=== PATIENT | male | born 1945 | race Caucasian/White ===

== ENCOUNTER 2024-01-04 01:45 | Inpatient (IN) | payer OTHER, SELFPAY ==
[2024-01-04] VITALS (10 sets, daily range): BP systolic 118–145; BP diastolic 64–78; PULSE 96–117; RESP 12–21; TEMP 36.5–38.1; O2SAT 92–98; BMI 21.4
--- NOTE | 2024-01-04 07:36 | DI.RAD.S_ITS ---
PROCEDURE: XR HIP W PEL IF DONE MARCELINO MIN 4V INDICATIONS: fx TECHNIQUE: AP pelvis with lateral view(s) of the right hip(s). COMPARISON: None. FINDINGS: Bones: Moderately angulated and impacted right hip fracture, probably transcervical. Soft tissues: There are degenerative changes. IMPRESSION: Right hip fracture, with moderate angulation and impaction Dictated by: John Tejada M.D. on 01/04/2024 at 8:20 Approved by: John Tejada M.D. on 01/04/2024 at 8:21
[2024-01-04] MEDS: LACTATED RINGERS 1,000 ML 100 ML IV ×2 (11:43→15:55)
[2024-01-04 13:01] LABS: Hematocrit 34.7 % (41-53); Mean Corpuscular HGB Conc 34.4 % (30-36); Mean Corpuscular Hemoglobin 30.8 PG (26-34); Mean Corpuscular Volume 89.4 fL (80-100); Platelet Count 154 X10^3/uL (150-400); Red Blood Cell Count 3.88 X10^6/uL (4.5-5.9); Red Cell Distribution Width 13.9 % (11.6-14.8); White Blood Cell Count 8.6 X10^3/uL (4.5-11.0)
--- NOTE | 2024-01-04 14:10 | DIET.CONS ---
Dietary Consultation Note Admission Date: 01/04/2024 01:45 Assessment: 78 y M admitted for hip fracture. Nutrition screened for low MNA and Juan M score. Pt w/ history of dementia, is proceeding with right hip hemiarthroplasty, currently NPO for surgery. No weight history. Will monitor po intakes when diet is advanced and f/u for full assessment. Ht: 177.8 cm Wt: 68 kg BMI: 21.4 UBW: - Last BM: () MNA: 9 Juan M Score: 15 Diet: 01/04/24 01:54 NPO Diet Diet Modifications: NPO Type: NPO NOW for Procedure Labs: RBC 3.88 X10^6/uL (4.5-5.9) L 01/04/24 12:55 Hgb 12.0 g/dL (13.5-17.5) L 01/04/24 12:55 Hct 34.7 % (41-53) L 01/04/24 12:55 Electronically Signed by: Sydnie Quintana 01/04/24 14:10 Clinical Dietitian [address] [address]
--- NOTE | 2024-01-04 14:12 | PM.HP.1 ---
History of Present Illness History of Present Illness Date Patient Seen: 01/04/24 Time Patient Seen: 14:12 Chief complaint: rt hip fracture DIRECT ADMIT Narrative: 78-year-old male who sustained a ground level fall resulting in a right femoral neck fracture. This happened last night and he was initially seen at [facility]. Transferred to [facility] because they did not have orthopedic care. Currently denies any distal numbness or tingling. Does have dementia. Discussed his case with his designated power of commercial attorney. FOR[facility]LY [facility] Social History Smoking Status: Current every day smoker alcohol intake: former Meds Home Medications and Allergies Home Medications Medication Instructions Recorded Confirmed Type atorvastatin 40 mg tablet 40 mg PO DAILY 01/04/24 History citalopram 20 mg tablet 20 mg PO DAILY 01/04/24 01/04/24 History Allergies Allergy/AdvReac Type Severity Reaction Status Date / Time demeclocycline Allergy Mild Difficulty Verified 01/04/24 05:21 Breathing Tetracyclines Allergy Unknown Verified 01/04/24 05:21 Review of Systems Review of Systems ROS: Yes All systems reviewed with the patient and are negative except as otherwise documented Exam Vital Signs (past 8 hours): - 01/04/24 08:00 01/04/24 12:00 01/04/24 13:34 Temperature 100.2 F H 100.6 F H 100.1 F H Pulse Rate 107 H 102 H 100 H Respiratory Rate 16 18 18 Blood Pressure 118/68 118/66 136/64 Pulse Oximetry 93 92 98 Oxygen Delivery Method Room Air Oxygen Flow Rate 1 1 2 Oxygen Delivery Method Room Air Oxygen Flow Rate 2 Narrative Exam Narrative: HEENT: Head atraumatic eyes anicteric moist mucous membranes Cardiovascular: Palpable peripheral pulses extremities are warm and well perfused Respiratory: Breathing comfortably on room air Psychiatric: Appropriate mood and affect Neuro: No acute deficits Musculoskeletal: Right lower extremity held flexed and slightly externally rotated Postoperatively: 6 weeks of nonweightbearing followed by increased weight-bearing over the next few weeks. For this patient specifically, they will be nonweightbearing for 4 weeks. Transitioned to a boot at the 2 week eligio in clinic when sutures are removed. Sensation intact to light touch in sural, saphenous, superficial peroneal, deep peroneal and tibial nerve distributions. Objective Labs 01/04/24 12:55 Labs: Laboratory Results - last 24 hr 01/04/24 12:55 WBC 8.6 RBC 3.88 L Hgb 12.0 L Hct 34.7 L MCV 89.4 MCH 30.8 MCHC 34.4 RDW 13.9 Plt Count 154 Assessment & Plan Assessment & Plan narrative: Assessment: Right basicervical femoral neck fracture, displaced Plan: Plan for right hip hemiarthroplasty with cement. Discussed this case with his designated power of commercial attorney. Risks and benefits of surgery were discussed again including the risk of infection, damage to internal structures, bleeding, nerve injury, instability, need for revision surgery, blood clots, anesthesia and . No guarantees were made regarding outcomes. Patients DPOA expressed understanding and accepted these risks and wished to go forward with surgery and consent was signed. Time-Based Coding :: [TOTAL MINUTES] spent with patient and on the chart (including review of chart, obtaining history, exam, reviewing outside data, placing orders, documenting exam and treatment plan, and counseling patient) on [DATE].
[2024-01-04] MEDS: CEFAZOLIN 2 GM/100 ML PREMIX 100 ML IV (14:34)
[2024-01-04] MEDS: TRANEXAMIC ACID 1,000 MG VIAL 2000 MG INJ ×2 (14:56→16:03)
--- NOTE | 2024-01-04 15:05 | SUR.OPER ---
Lateral on padded OR bed. Gel axillary roll. Arms secured on padded armboard with pillow supporting top arm. Padded hip positioner braces x4 - anterior and posterior chest and pelvis. Additional gel pad used anterior pelvis. Gel pad under bottom leg from knee to foot and secured with tape over sheet.
[2024-01-04] MEDS: BUPIVACAINE 0.25% (PF) 60 ML, EPINEPHrine 0.3 MG INJ (15:11)
[2024-01-04] MEDS: BUPIVACAINE LIPOSOME 266 MG/20 ML VIAL INJ (15:11)
[2024-01-04] MEDS: EPINEPHrine 1 MG/ML TOP (15:13)
--- NOTE | 2024-01-04 16:00 | PC.NURSE ---
Addendum entered by Nissa Meng R.N. 01/04/24 18:28: Pt returnss from PACU Awake /quite. Family here Dsg to right hip CDI. IVF infusing as per orders w/o incidence. Denies discomfort, resting quietly at this time. Call light w/in reach, b ed alarm on for pt safety. Continue w/plan of care. Original Note: Pt continues i OR at this time. Will assess upon return
--- NOTE | 2024-01-04 16:20 | P.OP_ITS ---
Operative Date/Time/Diagnoses Date of procedure: 01/04/24 Time of procedure: 16:21 Pre-op diagnosis: Right hip femoral neck fracture Post-op diagnosis: same Procedure & Clinicians Procedure: Right hip hemiarthroplasty Same procedure as scheduled: Yes Indications: Indication: This is a 78 old male with a left femoral neck fracture. We discu ssed that in order to decrease the risk of avascular necrosis, fracture nonunion fracture malunion and to increase the ability to weightbear early, and increase overall health outcomes, we recommend hip hemiarthroplasty. The risks and benefits of surgery were discussed in detail including the risk for infection, damage to internal structures, bleeding, hardware failure, femur fracture, need for future surgery, dislocation, and risks of anesthesia. They accepted all the risks and expressed understanding and wished to go forward with surgery. Surgeon: Jasvir Preciado Pet Nutrition Specialist: Yecenia Rivera Operative Notes Findings: Right basicervical femoral neck fracture as seen on imaging and under direct visualization. Closure Type: primary Specimen(s): none sent Prosthetic devices, grafts, tissues, transplants, or devices: Implants [employer] Synergy cemented stem size 11 Distal post centralizer Cement restrictor High offset taper sleeve Unipolar head size 54 Estimated Blood Loss (mL): 100 Blood products transfused: none Procedure in detail: Description: Patient was identified in the preoperative holding area. The correct right hip was marked with my initials. Risks were again discussed. The patient was then brought to the operating room. A surgical pause was done confirming the correct site of surgery. The patient was given perioperative IV antibiotics followed by induction of general anesthesia. Patient was placed in the lateral decubitus position with hip athletics director positioners. An axillary roll was placed. The right hip and lower extremity were then prepped and draped in a standard sterile fashion. Posterolateral skin incision was made centered over the greater trochanter. Dissection was carried down to the fascia jaelyn and a Han was used to define the plane of tissue. The fascia was then incised in line with the skin incision over the greater trochanter. A Charnley retractor was placed. The trochanter bursa was then resected. The leg was internally rotated and the capsule and short external rotators were put on tension. They were then released in line with the piriformis tendon as a single sleeve in an L-shaped fashion and this was tagged with a #5 Ethibond suture for later repair. The upper part of the quadratus femoris insertion on the femur was released. The hip was then dislocated. With the thigh parallel to the ground and the leg perpendicular to the ground at 90?, a femoral neck cut was done and then the femoral head was removed from the acetabulum. A Lr retractor was placed under the neck, and a narrow Cobra was placed into the lesser trochanter. The Uevoc cutter and canal Finder were then used followed by the lateralizer. Broaching was commenced. Trialing was then done and the hip was felt to be stable. Once satisfactory sizing was confirmed a centralized plug was inserted and the canal was lavaged and dried. Cement was inserted and pressurized. The final implant was then inserted with just a few degrees of additional anteversion from the shawnee version. Retrialing was done and the final bipolar head/neck construct was inserted. The hip was again taken through range of motion. Implant was stable at 90? of hip flexion all the way to 60? of internal rotation. Leg lengths were equal based on tibial tubercle palpation. The wounds were irrigated. Capsule was repaired through 2 drill holes in the greater trochanter. Fascia was closed with #2 Quill and then the subcutaneous tissue was closed with Vicryl followed by skin sol and sterile dressings. Patient tolerated the procedure well without complications. Assisting participation: This operation could not have been safely performed (without compromising the technical results or length of the procedure) without the assistance of a skilled surgical garment assembler. The surgical garment assembler was medically necessary for proper positioning, retraction and handlingof instruments, proper exposure, and manipulation of tissue. Complications: none Post-operative Condition: stable Disposition: PACU Plan for aftercare: Postop instructions: Patient may weightbear as tolerated on postoperative day 1. Hip precautions to remain in place. No flexion adduction and internal rotation. Patient may shower over the dressing. If water gets underneath the dressing, please remove the dressing completely and ensure that the incision is completely dry. Otherwise, the dressing will come off on at the 1st postoperative visit in 2 weeks. I recommend aspirin, 81 mg b.i.d. for 4 weeks unless they are already on an anticoagulant or aspirin is not tolerated, if this is the case then Lovenox 40 mg subcutaneous for 4 weeks can be used for DVT prophylaxis.
--- NOTE | 2024-01-04 16:27 | CM.DPNOTE ---
DCP NOTE CERAMIC DESIGN ENGINEER reviewed EMR. per chart, pt direct admit from [facility] for GLF resulting in hip fracture. No H&P/notes in the chart for the entire day. Per RN, pt only oriented to self/has dementia at baseline. No documentation in chart. Per RN, OR scheduled for today. DALTON Bridges provided CM team with medical records from [facility]. Behind FS CERAMIC DESIGN ENGINEER unable to complete comprehensive DCP assessment today. CM team will follow closely tomorrow RAHUL Martínez
[2024-01-04 17:16] LABS: COVID19 -Nasal RAPID Negative (Negative)
[2024-01-04] MEDS: INSULIN LISPRO 100 UNIT/ML 3ML VIAL SUBCUT (20:30)
[2024-01-04] MEDS: ASPIRIN EC 81 MG TABLET PO (20:34)
[2024-01-05 01:00] VITALS: BP 124/76; PULSE 86; RESP 19; TEMP 36.6; O2SAT 94
[2024-01-05] MEDS: OXYCODONE 5 MG/5 ML ORAL SOLUTION PO ×2 (01:22→14:04)
[2024-01-05] MEDS: LACTATED RINGERS 1,000 ML 100 ML IV (01:55)
[2024-01-05 04:50] VITALS: O2SAT 97
--- NOTE | 2024-01-05 06:14 | PM.PNPO.1 ---
Subjective Subjective Date Patient Seen: 01/05/24 Time Patient Seen: 06:15 Interval history: Martin suffered a GLF on the evening of 01/03/2024, resulting in a RIGHT femoral neck fracture. He was taken to surgery w/ Dr Preciado yesterday for a right hip hemiarthorplasty. There is not much history available to me on my visit today. He is reponsive, providing one-word answers that correlate to my questions. But he is wearing mittens over his hands and his hands are partially restrained. From what I can ascertain, he was living at home with his . Exam Vital Signs (past 8 hours): - 01/04/24 22:30 01/05/24 01:00 01/05/24 04:50 Temperature 97.8 F Pulse Rate 86 Respiratory Rate 19 Blood Pressure 124/76 Pulse Oximetry 95 94 97 Oxygen Delivery Method Nasal Cannula Nasal Cannula Oxygen Flow Rate 2 2 1 Fraction of Inspired Oxygen 28 Fraction of Inspired Oxygen 28 SaO2/FiO2 Ratio 339 Oxygen Delivery Method Nasal Cannula Oxygen Flow Rate 1 Narrative Exam Narrative: He will not move his leg for me, but I am able to see him move at the ankle. His calf is soft and compressible. Aquacel dressing from what I can see is CDI. Objective Labs 01/04/24 12:55 Labs: Laboratory Results - last 24 hr 01/04/24 01/04/24 12:55 16:30 WBC 8.6 RBC 3.88 L Hgb 12.0 L Hct 34.7 L MCV 89.4 MCH 30.8 MCHC 34.4 RDW 13.9 Plt Count 154 SARS-CoV-2 (PCR) Negative PFSH Social History Smoking Status: Current every day smoker alcohol intake: former Assessment & Plan Post-op Assessment and plan (1) Status post hip hemiarthroplasty: Assessment and Plan narrative: 1) PT - WBAT to RLE. 2) VTE prophylaxis - ASA 81mg BID 3) Disposition pending PT assessment; PT, OT, and CM consults have not yet been ordered. He will very likely need SNF prior to discharge home. Postoperative Procedures: Procedures Operation Date: 01/04/24 14:45 Actual Procedure Side Surgeon p Hip Hemiarthroplasty Right Jasvir Preciado MD Postoperative day: 1
--- NOTE | 2024-01-05 06:19 | PC.NURSE ---
Patient pulling out his IV access, pizarro catheter, oxygen tubing, pulse oximeter & his gown. Applied bilateral mittens not attach to bed. SPO2 in 2 liters 98% & @ 1 liter 97%, turned 02 down to 0.5 liter & SPO2 92-93%< Will continue plan of care & monitor.
[2024-01-05 07:37] VITALS: O2SAT 97
[2024-01-05 08:00] VITALS: BP 120/62; PULSE 81; RESP 17; TEMP 36.8; O2SAT 95
[2024-01-05] MEDS: ASPIRIN EC 81 MG TABLET PO ×2 (08:09→20:46)
--- NOTE | 2024-01-05 13:15 | PT.IIE ---
Current Diagnoses Fracture of unspecified part of neck of right femur, initial encounter for closed fracture (01/04/24) Presence of unspecified artificial hip joint (01/04/24) Surgery Performed Operation Date: 01/04/24 14:45 Actual Procedures p Hip Hemiarthroplasty(Right) - Jasvir Preciado MD Physical Therapy Inpatient Evaluation/Re-Eval M1 PT/OT-IP Prior Functional Status Start: 01/05/24 16:24 Freq: NEEDED Status: Active Protocol: Document 01/05/24 13:15 AB (Rec: 01/05/24 16:44 AB [id number]) Medical Review Prior Functional Status Medical History Reviewed Yes Communication does not verbalize much and inconsistent with answering questions; pt with dx dementia Mobility and Gait unable to obtain PLOF form pt. edwin stated that pt mostly in bed but per memory care staff: pt able to walk with COMMUNICATIONS OPERATOR to the dining room but daughter does not know how much assistance. Social History Household Members caregiver Living Arrangements Other Number of Stairs To Enter/Railing? pt lives at [facility] Additional Social History Comment daughter stated that memory care facility cannot accept pt back at this time. M2 PT-IP Current Condition Start: 01/05/24 16:24 Freq: NEEDED Status: Active Protocol: Document 01/05/24 13:15 AB (Rec: 01/05/24 16:44 AB [id number]) Physical Therapy Current Condition Current Condition Evaluation Date 01/05/24 Treatment Diagnosis s/p R hip hemiarthroplasty; difficulty in walking Onset Date 01/04/24 M3 PT-IP Subjective Start: 01/05/24 16:24 Freq: NEEDED Status: Active Protocol: Document 01/05/24 13:15 AB (Rec: 01/05/24 16:44 AB [id number]) Subjective Physical Therapy Visit Type Type Initial Evaluation Visit Start Time 13:15 Visit Stop Time 14:10 Number of PICTURE ENLARGER Visits 0 Therapy Pain Assessment Pain When Pain Assessed During Mobility Pain Present Pain Present Pain Reported Location Right Hip Scale Used pain scale not stated that stated that hip hurts Pain Management Techniques Distraction,Modification of Treatment,Re-positioning, Timing of Activity with Medications M4 PT-IP Mobility and Gait Start: 01/05/24 16:24 Freq: NEEDED Status: Active Protocol: Document 01/05/24 13:15 AB (Rec: 01/05/24 16:44 AB [id number]) PT-Bed Mobility Assessment Supine to Sit Supine to Sit Maximum Assistance,1 Person Assistance,2 Person Assistance ,Head of Bed Elevated,Bedrails PT-Transfer Assessment Sit to and From Stand Sit to and from Stand Maximum Assistance,2 Person Assistance,Use of Upper Extremities Equipment Transfer Assistive Device Gait Belt,Front Wheeled Walker Orthotic/Prosthetic Devices or Brace: No Transfers Transfer Destination Chair Transfer Technique Stand Pivot Transfer Ability Level of Assist Total Assistance,2 Person Assistance,Use of Upper Extremities Comments Mobility Comments pt supine in bed. attempted to obtain PLOF and home set up but pt unable to provide. pt with dx dementia and is not consistent with answering question. pt needing one step cues with all tasks. completed supine to sit x 3 attemps max A x 1-2 and max cues with HOB elevated and use of bed rail. pt with increase guarding during movement and can be resistive. pt able to sit on EOB max A and max cues. nurse in room to assist. completed sit to stand x 2 reps. increase posterior trunk lean and body guarding. pt sat back down redirected pt to task completed sit to stand again max A x 2 and max cues and stand pivot transfer to chair max A x 2 to total A x 2 using FWW. pt inconsistent with following directions. positioned pt on the chair. call light and table placed within reach. informed nurse regarding chair alarm. family came in towards end of PT session and provided some info regarding pt. informed family regarding PT in hospital but limited due to pt's inability to follow directions, agitation/ resistance that will affect carryover of function but PT to continue efforts at this time. family understood. Gait Assessment Comments Gait Comments unable PT-Balance Assessment Sitting Balance and Reactions Static Sitting Balance Ability Fair Dynamic Sitting Balance Ability Poor Standing Balance and Reactions Static Standing Balance Ability Poor Dynamic Standing Balance Ability Poor Device Used FWW M5 PT-IP Objective Assessments Start: 01/05/24 16:24 Freq: NEEDED Status: Active Protocol: Document 01/05/24 13:15 AB (Rec: 01/05/24 16:44 AB [id number]) Orientation Orientation/Cognition Level of Alertness Confusional State Orientation Name Safety Awareness Decreased Safety Awareness Memory Description Short Term Impaired,Contact Lens Blocker And Cutter Impaired Strength Lower Extremity Strength Assessment Right Impaired Hip 3-/5 Knee 3+/5 Muscle Tone Muscle Tone WNL Yes M6 PT-IP Treatment Start: 01/05/24 16:24 Freq: NEEDED Status: Active Protocol: Document 01/05/24 13:15 AB (Rec: 01/05/24 16:44 AB [id number]) Physical Therapy Treatment Education Education Provided Precautions,Weight Bearing Status,Post-Op Packet,Safety M7 PT-IP Assessment and Plan Start: 01/05/24 16:24 Freq: NEEDED Status: Active Protocol: Document 01/05/24 13:15 AB (Rec: 01/05/24 16:44 AB [id number]) PT Summary Assessment and Plan Potential Rehabilitation Potential Fair Status of Condition at Evaluation Evolving Summary Impairments Pain,ROM,Strength,Balance, Coordination,Sensation,Tone, Cognition,Bed Mobility, Transfers,Gait,Activity Tolerance Assessment Summary pt is a 78 y/o M s/p fall and sustain a R femoral neck fx. pt underwent R hip hemiarthroplasty POD 1 and has R hip posterior precautions and is WBAT. pt requiring max A x 2 to total A x 2 with all mobilities at this time and unable to ambulate. pt with dx dementia contributing to current condition. pt inconsistent with following directions and unable to follow his hip precautions. will continue to make efforts to improve pt's mobility. pt will need SNF rehab to improve overall strength and function . will continue to assess progress. Goals Bed Mobility Goal Minimal Assistance Transfer Goal Minimal Assistance,Front Wheeled Walker Gait Goal Minimal Assistance,Front Wheel Walker Gait Distance 20 Other Goals improve bed mobility, transfers, ambulation using FWW ~ 50 ft CGA Days to Meet Goals 10 Frequency of Treatment Other frequency 1-2x/day Treatment Plan Physical Therapy Treatment Plan Bed Mobility Training,Transfer Training,Gait Training, Therapeutic Exercise,Balance Retraining,Post Op Education, Discharge Planning,Hot or Cold Pack,Neuromuscular Re-ed, Coordination Retraining,Manual Therapy Precautions Posterior Hip Precautions No Hip Flexion > 90 degrees,No Hip Internal Rotation,No Hip Adduction Weight Bearing Status Weight Bearing Status Weight Bear as Tolerated Allowed Weight Bearing Amount (enter % RLe WBAT or #) (%) Recommendations To Nursing Amount of Assist Needed Mechanical Lift Discharge Recommendations PT Discharge Recommendations SNF Rehab Transportation Needs at Discharge Wheelchair/Cabulance,Stretcher /Ambulance
--- NOTE | 2024-01-05 15:02 | CM.DANOTE ---
DPA Assessment Note: Patient is a 78 y/o m admitted s/o fall, transferred from [facility], resides at [facility]. Chart reviewed spoke with patient daughter, spouse, son, and grand dtr at the bedside. Patient dtr is medical POA, copied for chart, and states they would like [facility] in [place] for SNF. Passr needs to be done. RAHUL Guzman Discharge Planning/Care Management CM Discharge Assessment Start: 01/05/24 14:59 Freq: Status: Active Protocol: Document 01/05/24 14:59 KG (Rec: 01/05/24 15:01 KG [id number]) Discharge Planning Assessment Assigned Wallpaper Remover Steam Meka Esparza DPOA/Assigned Designee Name Martin Vigil Advance Directives? No History Provided By Family Member,Significant Other Expected Length of Stay 2 Has Patient been admitted in last 30 No days? Prior Living Arrangements Assisted Living Comment [facility], Memory Care Type of transporation used prior to Relies on Others admit Independent with ADL's No Is patient alert and oriented? No Needs Assistance With Bathing,Eating,Grooming,Meal Prep,Toileting,Managing Medications Caregiver for Another No Patient/Family Preference Prison Facility Barriers to Discharge No Discharge Plan Prison Facility Referrals Initiated Prison If patient plan is SNF: Has PASSR been No completed?
[2024-01-05 16:00] VITALS: BP 117/60; PULSE 96; RESP 12; TEMP 36.9; O2SAT 93
[2024-01-05] MEDS: INSULIN LISPRO 100 UNIT/ML 3ML VIAL SUBCUT (16:45)
--- NOTE | 2024-01-05 17:55 | PC.NURSE ---
Pt presents more alert today, however still some dementia noted Takng meals well SL intact, patent. Sat in chair for approximately 2 hrs w/o incidence. Todd used for transfer. Call light w/in reach, Bed alarm on for pt safety. Continue w/plan of care.
[2024-01-05 20:35] VITALS: BP 163/86; PULSE 104; RESP 16; TEMP 37.4; O2SAT 96
[2024-01-05] MEDS: ACETAMINOPHEN 325 MG TABLET 650 MG PO (20:45)
[2024-01-06] VITALS (9 sets, daily range): BP systolic 101–137; BP diastolic 54–70; PULSE 83–103; RESP 15–18; TEMP 36.8–38.3; O2SAT 92–96
[2024-01-06] MEDS: ACETAMINOPHEN 325 MG TABLET 650 MG PO ×2 (04:39→13:42)
[2024-01-06] MEDS: IBUPROFEN 600 MG TABLET PO ×2 (08:18→13:42)
[2024-01-06] MEDS: ASPIRIN 81 MG CHEW TAB PO ×2 (08:24→20:17)
--- NOTE | 2024-01-06 08:43 | PC.NURSE ---
Patient is Alert but only oriented x1. He is familiar with his name. He will answer questions sometimes, and seems agitated at times. He has an aquacel dressing to his r.hip with some drainage present. He was repositioned this morning and has pillows under his legs, one wedged in between his legs, and another pillow on his r.side as he likes to shift over on that side. He does moan out in pain when being repositioned. Patient given some ibuprofen and chewable aspirin this morning in pudding. His medication needs to be crushed or he will just chew it. Blood Sugar this morning 115. No insulin given. CMS wnl and ppx2.
--- NOTE | 2024-01-06 13:03 | CM.DPC ---
DCP Cont. Reviewed EMR and team rounds for status updates. [facility] referral sent on 01/05, did not receive return call today on status of acceptance. Will need to call and clarify on Sunday, will need auth. PASSAR not yet done.
--- NOTE | 2024-01-06 13:07 | PT-IP ANOTE ---
PT checks in on pt who presents with confusion and decreased eye contact. He has trouble communicating with PT. PT pushing napkin with spoon and then continuing to eat jell-o. Will con't PT efforts next date as pt is better able to participate with therapies. Recommend OOB to chair with total lift as appropriate.
--- NOTE | 2024-01-06 14:35 | DI.CT.S_ITS ---
PROCEDURE: CT HEAD/BRAIN WO CON INDICATIONS: r/o SDH TECHNIQUE: Noncontrast 4.5 mm thick angled axial sections acquired from the foramen magnum to the vertex, with coronal and sagittal reformats. For radiation dose reduction, the following was used: automated exposure control, adjustment of mA and/or kV according to patient size. COMPARISON: None. FINDINGS: Image quality: Diagnostic. CSF spaces: Basal cisterns are patent. No extra-axial fluid collections. Ventricles are normal in size and shape. Brain: No midline shift. No intracranial masses or hemorrhage. Calvillo-white matter interface is normal. Moderate cerebral and cerebellar volume loss with multifocal white matter chronic ischemic change noted. Atherosclerotic calcification noted associated with cavernous segments of both internal carotid arteries. Old right thalamic lacunar infarct Skull and face: Calvarium and visualized facial bones are intact, without suspicious lesions. Bilateral intraocular lens replacements noted. Sinuses: Visualized sinuses and mastoids are clear. IMPRESSION: Atrophy and chronic ischemic change without acute hemorrhage or mass effect. Old right thalamic lacunar infarct. Approved by: Adryan Fry M.D. on 01/06/2024 at 15:27
--- NOTE | 2024-01-06 14:40 | P.PN_ITS ---
Subjective Subjective Date Patient Seen: 01/06/24 Time Patient Seen: 14:40 Interval history: Martin suffered a GLF on the evening of 01/03/2024, resulting in a RIGHT femoral neck fracture. He was taken to surgery w/ Dr Preciado on 01/05/2024 for a right hip hemiarthorplasty. Thanks to the care management team as well as the opportunity to meet the pts sister, niece, and granddaughter today, I have a little more insight into this pts baseline state of health. He resides at [facility], and per the family, the staff have not been forthcoming about how this fall occurred or what happened afterwards. They tell me it was reported that he hit his head, and they don't think any imaging was done at [facility]. They are requesting that I order a CT of the head as they feel his responsiveness has decreased since his fall. They tell me he is typically a bit more interactive and can answer their questions. When I try to engage with him today, he avoids eye contact and doesn't answer me at all. Family tells me the staff has been withholding narcotic pain medication because they think it is contributing to his confusion. Sister says she can tell he is angry and in pain. Exam Vital Signs (past 8 hours): - 01/06/24 08:00 01/06/24 08:09 Temperature 98.3 F Pulse Rate 91 H Respiratory Rate 15 Blood Pressure 101/54 L Pulse Oximetry 95 92 Oxygen Delivery Method Nasal Cannula Oxygen Flow Rate 2.5 3 Fraction of Inspired Oxygen 32 Fraction of Inspired Oxygen 32 SaO2/FiO2 Ratio 287 Oxygen Delivery Method Nasal Cannula Oxygen Flow Rate 3 Narrative Exam Narrative: Dressing to right hip seems to have some bloody drainage, but unable to assess fully d/t pts lack of cooperation. He will not move his RLE for me. His calf is soft and compressible. Objective Labs 01/04/24 12:55 [facility] Social History household members: caregiver Smoking Status: Current every day smoker alcohol intake: former Assessment & Plan Post-op Assessment and plan (1) Status post hip hemiarthroplasty: Assessment and Plan narrative: 1) Patient was directly admitted to Dr Preciado; should probably have been admitted to the hospitalist service given his history. Per family's request, I'll order a CT scan of the head and have results called to Dr Preciado, at which point he can decided whether he feels the hospitalist service should be consulted on this patient. 2) I have d/c'd the oxycodone solution and started tramadol, which should help with pain and typically causes less cognitive dissonance than oxycodone. 3) Per notes, referral has been sent to [facility] in [place] per family's request. 4) Will continue ASA 81mg BID. At this point, I don't see evidence of acute hemorrhagic stroke or SDH, and I think the risk of VTE outweighs the benefit of holding ASA until the CT scan is complete. Postoperative Procedures: Procedures Operation Date: 01/04/24 14:45 Actual Procedure Side Surgeon p Hip Hemiarthroplasty Right Jasvir Preciado MD Postoperative day: 2
[2024-01-06] MEDS: TRAMADOL 50 MG TABLET 100 MG PO (15:09)
[2024-01-07 04:00] VITALS: BP 121/66; PULSE 86; RESP 16; TEMP 37.2; O2SAT 93
--- NOTE | 2024-01-07 06:25 | PM.PNPO.1 ---
Subjective Subjective Date Patient Seen: 01/07/24 Time Patient Seen: 06:50 Interval history: Per family's request, CT head was performed yesterday to r/o hemorrhage/infarct d/t mental status changes. CT showed no acute processes. Despite my waking him from a sound sleep this morning, Mr Vigil is much brighter than I've seen him since this admission. He answers questions appropriately and with more than one word. I told him I had the opportunity to meet his family and that they love him very much. I love them, too, he replied. We discussed that he may go to rehab later today. He says his pain isn't too bad; I switched him from oxycodone to tramadol yesterday in the hopes it would be less sedating, and it looks like he only received one 100mg dose. Exam Vital Signs (past 8 hours): - 01/07/24 04:00 Temperature 98.9 F Pulse Rate 86 Respiratory Rate 16 Blood Pressure 121/66 Pulse Oximetry 93 Oxygen Flow Rate 2 Fraction of Inspired Oxygen 28 SaO2/FiO2 Ratio 328 Oxygen Delivery Method Nasal Cannula Oxygen Flow Rate 2 Narrative Exam Narrative: 3/5 hip flexors, quadriceps, hamstrings; 5/5 PF, DF, EHL on right. Sensation to light touch intact throughout RLE, calf soft and compressible. Pt unable to roll so that I can fully see dressing, but there is some bloody drainage from the Aquacel. Objective Labs 01/04/24 12:55 PFSH Social History household members: caregiver Smoking Status: Current every day smoker alcohol intake: former Assessment & Plan Post-op Assessment and plan (1) Status post hip hemiarthroplasty: Assessment and Plan narrative: 1) Per CM notes, referral has been sent to [facility] in [place] per family's request. I will write d/c summary, print rxs and med list in the event pt is able to d/c today. There is no PASSR available for signature in the chart. 2) WBAT to RLE. Dressing change prior to discharge. F/u in office in 2 weeks for wound check. 3) ASA 81mg BID for VTE prophylaxis. Postoperative Procedures: Procedures Operation Date: 01/04/24 14:45 Actual Procedure Side Surgeon p Hip Hemiarthroplasty Right Jasvir Preciado MD Postoperative day: 3
--- NOTE | 2024-01-07 06:56 | P.DS_ITS ---
History of Present Illness History of Present Illness Date Patient Seen: 01/07/24 Time Patient Seen: 06:56 Chief complaint: rt hip fracture DIRECT ADMIT Narrative: Operative Date/Time/Diagnoses Date of procedure: 01/04/24 Time of procedure: 16:21 Pre-op diagnosis: Right hip femoral neck fracture Post-op diagnosis: same Procedure & Clinicians Procedure: Right hip hemiarthroplasty Same procedure as scheduled: Yes Indications: Indication: This is a 78 old male with a left femoral neck fracture. We discussed that in order to decrease the risk of avascular necrosis, fracture nonunion fracture malunion and to increase the ability to weightbear early, and increase overall health outcomes, we recommend hip hemiarthroplasty. The risks and benefits of surgery were discussed in detail including the risk for infection, damage to internal structures, bleeding, hardware failure, femur fracture, need for future surgery, dislocation, and risks of anesthesia. They accepted all the risks and expressed understanding and wished to go forward with surgery. Surgeon: Jasvir Preciado Electrical Experimental Mechanic: Yecenia Rivera Operative Notes Findings: Right basicervical femoral neck fracture as seen on imaging and under direct visualization. Closure Type: primary Specimen(s): none sent Prosthetic devices, grafts, tissues, transplants, or devices: Implants [employer] Synergy cemented stem size 11 Distal post centralizer Cement restrictor High offset taper sleeve Unipolar head size 54 Estimated Blood Loss (mL): 100 Blood products transfused: none Discharge Providers Provider Date of admission: 01/04/24 01:45 Discharge Date: 01/07/24 Primary care physician: Beatriz Osullivan MD Consults: 01/05/24 10:59 Consult to Discharge Planning Routine Comment: Consult to Physical Therapy Evaluate & Treat Comment: WBAT to RLE Physician Instructions: Evaluate and Treat 01/05/24 11:00 Consult to Occupational Therapy Evaluate & Treat Comment: Physician Instructions: Evaluate and treat Discharge provider: Reanna Echols PA-C Summary Hospital Course Discharge Diagnosis: Right femoral neck fracture, s/p right hip hemiarthroplasty Hospital Course: Mr Vigil's hospital course was remarkable for some post-op confusion, which, in talking to his family, was more pronounced than usual. He resides at a memory care facility, but despite this, he is typically conversant. Because of family's concerns, a CT of the head was ordered and opioid medications were changed on POD# 2. CT was negative for any acute changes and demonstrated an old lacunar infarct. On the morning of POD# 3, he was much brighter than he had been since surgery. PT recommended SNF prior to return to [facility] care, and family requested [facility] in [place]. Exam Vital Signs (past 8 hours): - 01/07/24 04:00 Temperature 98.9 F Pulse Rate 86 Respiratory Rate 16 Blood Pressure 121/66 Pulse Oximetry 93 Oxygen Flow Rate 2 Fraction of Inspired Oxygen 28 SaO2/FiO2 Ratio 328 Oxygen Delivery Method Nasal Cannula Oxygen Flow Rate 2 Narrative Exam Narrative: Please see today's progress note. Objective Labs 01/04/24 12:55 PFSH Social History household members: caregiver Smoking Status: Current every day smoker alcohol intake: former Discharge Assessment & Plan Assessment and Plan Assessment: Right femoral neck fracture, s/p right hip hemiarthroplasty Plan of Treatment: Discharge to SNF when accepted. Dressing change, Kat removal prior to discharge. F/u w/ ortho in 2 weeks for wound check. WBAT to RLE, walker at all times when upright/ambulatory. ASA 81 mg BID x 6 weeks for VTE prophylaxis. Discharge Plan Discharge Plan Patient Disposition: SNF Transfer to: [facility] Discharge orders & Medications Prescriptions: New acetaminophen 325 mg Tablet 650 mg PO Q6H PRN (Reason: Fever/Mild Pain (1-3)) Qty: 120 0RF aspirin 81 mg Tablet,Chewable 81 mg PO BID Qty: 90 0RF ibuprofen 600 mg Tablet 600 mg PO Q6HR PRN (Reason: Fever/Mild Pain (1-3)) Qty: 120 0RF nicotine 21 mg/24 hr Patch 24 Hour 21 mg topical DAILY Qty: 28 0RF tramadol 50 mg Tablet 100 mg PO Q4-6H PRN (Reason: Pain, Moderate (4-6)) Qty: 60 0RF ondansetron 4 mg tablet,disintegrating 4 mg PO Q8H PRN (Reason: nausea and vomiting) Qty: 30 0RF polyethylene glycol 3350 17 gram/dose powder 17 g PO DAILY PRN (Reason: constipation) Qty: 850 0RF Continued atorvastatin 40 mg tablet 40 mg PO DAILY citalopram 20 mg tablet 20 mg PO DAILY Follow up/Referrals: Jasvir Preciado MD [Physician] - 2 Weeks (Follow up w/ PA or Dr Preciado in ortho clinic in 2 weeks postop for wound check and xrays. F/u w/ Dr Preciado in 6 weeks.) Beatriz Osullivan MD [Primary Care Provider] - Diet/Activity/Treatments Diet: Diet as Tolerated Activity: Weightbearing as tolerated to right leg. Posterior hip precautions x 6 weeks. Cold/Heat Therapy: Ice to hip as needed for pain. Skin/Wound/Dressing Care Report to your healthcare provider any signs of infection, such as:: chills, fever, night sweats, unusual drainage and unusual redness Dressing: May shower. Leave dressing in place until follow up in office. If dressing becomes saturated inside, remove and replace with clean, dry gauze. No bathing or otherwise soaking incision. Do not apply any creams, lotions, or ointments to incision. [facility] Reason for rehabilitation: Post-operative therapy Rehab type: Physical therapy and Occupational therapy Visit Report/Discharge Packet Instructions: DI for Hip Replacement, DI for Prescription Opioid Use Stand Alone Forms: Patient Portal/API, Surgery Discharge Discharge Data Primary Care Provider: Beatriz Osullivan
[2024-01-07 08:00] VITALS: BP 125/69; PULSE 86; RESP 12; TEMP 36.8; O2SAT 93
--- NOTE | 2024-01-07 08:10 | PC.NURSE ---
Addendum entered by Silvia Cárdenas R.N. 01/07/24 10:45: Kat catheter taken out by patient restorative care technician, iv will also be removed today. He will most likely be discharging to [facility] tomorrow, awaiting authorization. Original Note: Patient is in better spirits today. He is sitting up in his bed and eating breakfast. There are discharge orders for him today. Kat, iv, and dressing will come out and be changed. He denies pain at this time, but does wince in pain when be repositioned. This RN will medicate patient with pain medication after he is done eating his breakfast. [facility] wnl and ppx2 to r.hip.
[2024-01-07] MEDS: ASPIRIN 81 MG CHEW TAB PO ×2 (08:34→21:11)
[2024-01-07] MEDS: TRAMADOL 50 MG TABLET 100 MG PO (08:34)
[2024-01-07 08:53] VITALS: O2SAT 92; O2SAT 96
--- NOTE | 2024-01-07 11:45 | OT.IP.EVAL ---
Current Diagnoses Fracture of unspecified part of neck of right femur, initial encounter for closed fracture (01/04/24) Presence of unspecified artificial hip joint (01/04/24) Surgery Performed Operation Date: 01/04/24 14:45 Actual Procedures p Hip Hemiarthroplasty(Right) - Jasvir Preciado MD Occupational Therapy Inpatient Evaluation/Re-Eval M1 PT/OT-IP Prior Functional Status Start: 01/05/24 16:24 Freq: NEEDED Status: Active Protocol: Document 01/07/24 11:47 CGR (Rec: 01/07/24 12:04 CGR [id number]) Medical Review Prior Functional Status Medical History Reviewed Yes Communication does not verbalize much and inconsistent with answering questions; pt with dx dementia Mobility and Gait unable to obtain PLOF form pt. wilfredother stated that pt mostly in bed but per memory care staff: pt able to walk with HEMATOLOGY NURSE EDUCATOR to the dining room but daughter does not know how much assistance. Activities of Daily Living and IADL's Per Alva from [facility], Pt was able to participate in simple ADLs with verbal cues. Pt was able to toilet with SBA and needs assist with showering and dressing. She states that pt could get out of bed without assist when motivated. Pt ambulates with HEMATOLOGY NURSE EDUCATOR and is able to feed self some of the time . Social History Household Members caregiver Living Arrangements Assisted Living Number of Stairs To Enter/Railing? no steps, memory care facility . Home Environment High Toilet,Walk in Shower Home Equipment Shower Seat with Backrest,Hand Held Shower,Grab Bars Near Toilet,Grab Bars In Shower Employment Status Retired Additional Social History Comment Per Alva at [facility], pt will have any equipment that he needs. M2 OT-IP Current Condition Start: 01/07/24 11:47 Freq: Status: Active Protocol: Document 01/07/24 11:47 CGR (Rec: 01/07/24 12:04 CGR [id number]) Occupational Therapy Current Condition Current Condition Evaluation Date 01/07/24 Treatment Diagnosis FLG with R hip fx. 01/03 RTHA posterior Diagnosis Onset Date 01/04/24 Post Operative Precautions Posterior Hip Precautions No Hip Flexion > 90 degrees,No Hip Internal Rotation,No Hip Adduction M3 OT- IP Subjective and Pain Start: 01/07/24 11:47 Freq: Status: Active Protocol: Document 01/07/24 11:47 CGR (Rec: 01/07/24 12:04 CGR [id number]) OT- Subjective Occupational Therapy Visit Type Type Initial Evaluation Visit Start Time 11:26 Visit Stop Time 11:45 Notes Partial co-treat with P.T. OT Pain Assessment Pain When Pain Assessed At Rest Pain Present Pain Present Denied Pain M4 OT- IP ADL's Start: 01/07/24 11:47 Freq: Status: Active Protocol: Document 01/07/24 11:47 CGR (Rec: 01/07/24 12:04 CGR [id number]) OT [id number] Comments OT Self-Feeding Comments not meal time OT ADL-Grooming General Evaluation Grooming Ability Moderate Assistance Areas Needing Assistance Face Washing Comments OT Grooming Comments seated in bed and handed wash cloth, needed assist to get started. OT ADL-Oral Care General Eval Oral Care Ability Maximum Assistance Areas of Assistance Brushing Teeth,Retrieving/Set- Up of Items Comments Oral Care Comments Pt put tooth brush into mouth without putting tooth paste on the brush first. Tooth paste then put on the brush and pt brushed only L side of the mouth with vc to perform. Pt needed max a for brushing full mouth. OT ADL-Dressing General Eval Lower Body Dressing Ability Total Assistance Areas Needing Assistance Socks OT ADL-Toileting Comments OT Toileting Comments not performed, pt in breif OT ADL-Bathing Comments OT Bathing Comments not performed M5 OT- IP IADL's Start: 01/07/24 11:47 Freq: Status: Active Protocol: Document 01/07/24 11:47 CGR (Rec: 01/07/24 12:04 R [id number]) OT-Instrumental Activities of Daily Living Deficits IADL Deficits Identified Deficits Home Safety Awareness Awareness of Need for Assistance at Home Decreased Awareness Ability to Problem Solve Emergency Unable to Problem Solve Situations Medication Management Medication Management Caregiver Administers Money Management Money Management Caregiver Provides Assistance Meal Preparation Meal Preparation Caregiver Provides Assist Mobile Development Manager Mobile Development Manager Caregiver Provides Assist Driving Driving Concerns Identified Regarding Safety M6 OT- IP Functional Cognition Start: 01/07/24 11:47 Freq: Status: Active Protocol: Document 01/07/24 11:47 CGR (Rec: 01/07/24 12:04 R [id number]) Cognitive Factors Limiting Selfcare Function Cognitive Ability Level of Alertness Confusional State,Lethargic Patient Orientation Name Cognitive Comments Cognitive Assessment Comments Pt with advanced dementia and in a memory care facility. OT- Vision and Hearing OT- Hearing Assessment OT- Hearing Assessment WFL OT- Vision Assessment Vision Assessment Comments Pt does not follow commands to participate M7 OT- IP Mobility and Balance Start: 01/07/24 11:47 Freq: Status: Active Protocol: Document 01/07/24 11:47 CGR (Rec: 01/07/24 12:04 CGR [id number]) OT- Bed Mobility Assessment Supine to Sit Supine to Sit Assist Total Assistance,2 Person Assistance,Head of Bed Elevated,Bedrails Scooting Scooting to Edge of Bed Total Assistance,2 Person Assistance,Head of Bed Elevated,Bedrails OT-Transfer Assessment Sit to and From Stand Sit to and from Stand Maximum Assistance,2 Person Assistance Technique Transfer Destination Bed Devices Transfer Assistive Devices Gait Belt,Front Wheeled Walker Comments Mobility Comments Pt was able to stand with max x 2 but needed total a x2 for tranfer to EOB. Pt has a posterior lean with standing and sitting EOB OT- Gait Assessment Comments Gait Ability Comments pt unable to take steps OT- Balance Assessment Sitting Balance and Reactions Static Sitting Balance Ability Fair Dynamic Sitting Balance Ability Poor M8 OT- IP Objective Assessments Start: 01/07/24 11:47 Freq: Status: Active Protocol: Document 01/07/24 11:47 CGR (Rec: 01/07/24 12:04 CGR [id number]) OT Gross Range of Motion Upper Extremity Range of Motion ROM Impairments pt not able to follow commands to perform testing OT Strength Comments Strength Comments pt not able to follow commands to perform testing OT- Coordination Assessment Comments Coordination Comments pt not able to follow commands to perform testing OT-Muscle Tone Assessment Muscle Tone WNL Yes OT Sensation Assessment Edema Edema Absent M9 OT- IP Assessment and Plan Start: 01/07/24 11:47 Freq: Status: Active Protocol: Document 01/07/24 11:47 CGR (Rec: 01/07/24 12:04 CGR [id number]) OT Summary Assessment and Plan Potential Rehabilitation Potential Poor Analytic Complexity at Evaluation High Summary OT Impairments Pain,Balance,Coordination, Functional Cognition, Functional Mobility,Self- Feeding,Grooming,Dressing, Toileting,Bathing,Toilet Transfers,Shower Transfers, Activity Tolerance Progress Towards Goals Slow Progress due to Activity Tolerance,Slow Progress due to Cognition Assessment Summary Pt presents as a high complexity evaluation s/p admit for fall and R hip fx. Pt underwent R KARY posterior approach and is now WBAT. Pt is able to participate minimally with therapies. Pt would be most appropriate for return to his memory care and home health P.T. if pt shows improvement, which he might once pain with R hip movement decreases. Recommend d/c back to memory care. No further OT needs at this time. Frequency of Treatment Frequency Of Treatment Discharge Discharge Recommendations OT Discharge Recommendations Home with 23/10 Assist Available,Home Health Other Discharge Recommendations Return to memory care, home health when pt is able to participate Transportation Needs at Discharge Stretcher/Ambulance
--- NOTE | 2024-01-07 11:54 | CM.DPNOTE ---
BRO Baugh Spoke with daughter Isa Vigil P [phone] re discharge plan options. Isa is hopeful that [facility] will be able to accept patient. Isa has some concern about [facility]'s ability to care for patient at this time. Placed call to Elvi at [facility]; she requests updated clinical for review. If after review Elvi accepts patient, she will submit a one time contract, SNF auth request to [facility]. Placed call to Alva at [facility] in [place] P [phone], discussed patient. Emailed clinical to Alva to [email or web address]. Alva reports she will review clinical and complete a bedside assessment this afternoon. Alva will stay in touch re determination on accepting patient home vs recommendation for SNF before return home. CM team following closely for coordination of discharge plan. Patient is medically ready for discharge. DANY
--- NOTE | 2024-01-07 11:56 | PT.IPTN ---
Current Diagnoses Fracture of unspecified part of neck of right femur, initial encounter for closed fracture (01/04/24) Presence of unspecified artificial hip joint (01/04/24) Surgery Performed Operation Date: 01/04/24 14:45 Actual Procedures p Hip Hemiarthroplasty(Right) - Jasvir Preciado MD Physical Therapy Treatment Note M2 PT-IP Current Condition Start: 01/05/24 16:24 Freq: NEEDED Status: Active Protocol: Document 01/05/24 13:15 AB (Rec: 01/05/24 16:44 AB [id number]) Physical Therapy Current Condition Current Condition Evaluation Date 01/05/24 Treatment Diagnosis s/p R hip hemiarthroplasty; difficulty in walking Onset Date 01/04/24 M3 PT-IP Subjective Start: 01/05/24 16:24 Freq: NEEDED Status: Active Protocol: Document 01/07/24 11:28 MB (Rec: 01/07/24 11:55 MB [id number]) Subjective Physical Therapy Visit Type Type Treatment Note Visit Start Time 11:28 Visit Stop Time 11:40 Number of SPIDER ASSEMBLER Visits 0 Physical Therapy Visit Comments Patient Comments Pt only makes one comment during treatment and that is, In the hospital, when asked location. Therapy Pain Assessment Pain When Pain Assessed During Mobility Pain Present Pain Present Pain Reported Location Right Hip Intensity 6 Scale Used Kinney-Mojica (Faces) Pain Management Techniques Re-positioning M4 PT-IP Mobility and Gait Start: 01/05/24 16:24 Freq: NEEDED Status: Active Protocol: Document 01/07/24 11:28 MB (Rec: 01/07/24 11:55 MB [id number]) PT-Bed Mobility Assessment Supine to Sit Supine to Sit Total Assistance,2 Person Assistance,Head of Bed Elevated Sit to Supine Sit to Supine Total Assistance,2 Person Assistance,Head of Bed Elevated Scooting Scooting to Edge of Bed Dependent Scooting Up and Down in Bed Dependent PT-Transfer Assessment Sit to and From Stand Sit to and from Stand Maximum Assistance,2 Person Assistance,Use of Upper Extremities Equipment Transfer Assistive Device Gait Belt,Front Wheeled Walker Orthotic/Prosthetic Devices or Brace: No Comments Mobility Comments Pt unable to take steps today, is very wobbly in knees with attempted step/step pivot and returned to sitting. PT-Balance Assessment Sitting Balance and Reactions Static Sitting Balance Ability Fair Dynamic Sitting Balance Ability Poor Standing Balance and Reactions Static Standing Balance Ability Poor Dynamic Standing Balance Ability Poor Device Used RW M5 PT-IP Objective Assessments Start: 01/05/24 16:24 Freq: NEEDED Status: Active Protocol: Document 01/05/24 13:15 AB (Rec: 01/05/24 16:44 AB [id number]) Orientation Orientation/Cognition Level of Alertness Confusional State Orientation Name Safety Awareness Decreased Safety Awareness Memory Description Short Term Impaired,Sexologist Impaired Strength Lower Extremity Strength Assessment Right Impaired Hip 3-/5 Knee 3+/5 Muscle Tone Muscle Tone WNL Yes M6 PT-IP Treatment Start: 01/05/24 16:24 Freq: NEEDED Status: Active Protocol: Document 01/07/24 11:28 MB (Rec: 01/07/24 11:55 MB [id number]) Physical Therapy Treatment Education Education Provided Precautions,Weight Bearing Status,Post-Op Packet,Safety M7 PT-IP Assessment and Plan Start: 01/05/24 16:24 Freq: NEEDED Status: Active Protocol: Document 01/07/24 11:28 MB (Rec: 01/07/24 11:55 MB [id number]) PT Summary Assessment and Plan Potential Rehabilitation Potential Poor Status of Condition at Evaluation Evolving Summary Impairments Pain,ROM,Strength,Balance, Coordination,Cognition,Bed Mobility,Transfers,Gait, Activity Tolerance Progress Towards Goals Slow Progress due to Pain,Slow Progress - Other Assessment Summary Pt is a 78 y/o male who con't to present with acute on chronic confusion in setting of baseline memory care. Pt makes one verbalization during treatment and grimaces with dependent moving of right leg. He requires +2 dependent assistance for mobility. He cannot follow any simple functional commands and presents with posterior lean in sitting. One more acute care visit and consider d/c from acute PT if pt cannot participate with skilled intervention. Recommend OOB to chair with total lift and nsg and similar assist at d/c. Pt may orient better in known living situation. Goals Bed Mobility Goal Minimal Assistance Transfer Goal Minimal Assistance,Front Wheeled Walker Gait Goal Minimal Assistance,Front Wheel Walker Gait Distance 20 Other Goals improve bed mobility, transfers, ambulation using FWW ~ 50 ft CGA Days to Meet Goals 10 Frequency of Treatment Other frequency Once a day Treatment Plan Physical Therapy Treatment Plan Bed Mobility Training,Transfer Training,Gait Training, Therapeutic Exercise,Balance Retraining,Post Op Education, Discharge Planning,Hot or Cold Pack,Neuromuscular Re-ed, Coordination Retraining,Manual Therapy Precautions Posterior Hip Precautions No Hip Flexion > 90 degrees,No Hip Internal Rotation,No Hip Adduction Weight Bearing Status Weight Bearing Status Weight Bear as Tolerated Allowed Weight Bearing Amount (enter % R LE WBAT or #) (%) Recommendations To Nursing Amount of Assist Needed Mechanical Lift Discharge Recommendations Other Discharge Recommendations SNF vs return to memory care with increased assistance, total lift Transportation Needs at Discharge Wheelchair/Cabulance,Stretcher /Ambulance
--- NOTE | 2024-01-07 15:07 | CM.DPNOTE ---
Addendum entered by RAHUL Vogel 01/07/24 15:19: ADD: Referral emailed to Renuka at [facility], in contract with [facility]. Original Note: DCP Cont [facility] cannot take patient; Elvi [facility] reports they cannot accommodate patient's needs currently. Plan: Discharge back to [facility] memory care vs alt SNF placement. Will plan to discuss with patient's family. DANY
[2024-01-07 16:00] VITALS: BP 133/77; PULSE 84; RESP 12; TEMP 37.4; O2SAT 91
[2024-01-07 20:00] VITALS: BP 152/85; PULSE 97; RESP 18; TEMP 36.3; O2SAT 92
--- NOTE | 2024-01-07 20:31 | DI.RAD.S_ITS ---
PROCEDURE: XR CHEST 1V INDICATIONS: O2 desat TECHNIQUE: One view of the chest was acquired. COMPARISON: None. FINDINGS: Surgical changes and devices: None. Lungs and pleura: Lungs are clear. No pleural effusions or pneumothorax. Mediastinum: Mediastinal contours appear normal. Heart size is normal. Bones and chest wall: No suspicious bony lesions. Overlying soft tissues appear unremarkable. IMPRESSION: No acute cardiopulmonary abnormality is seen. Dictated by: Henry De La Torre M.D. on 01/07/2024 at 20:43 Approved by: Henry De La Torre M.D. on 01/07/2024 at 20:43
[2024-01-07] MEDS: ACETAMINOPHEN 325 MG TABLET 650 MG PO (21:42)
[2024-01-07] MEDS: IBUPROFEN 600 MG TABLET PO (21:43)
--- NOTE | 2024-01-08 06:53 | PC.NURSE ---
senior it assistant: 1999: low SpO2 in mid 80's noted on RA. lung sounds are diminished in bases bilaterally, patient does not appear to be in distress and is breathing normally. VSS. patient is confused at baseline and declining & removing nasal cannula. notified MD Preciado & RT, CXR ordered. Continuing to monitor. 629 update: SpO2 90-93% on RA overnight. No signs of distress noted.
[2024-01-08 07:01] VITALS: BP 142/72; PULSE 72; RESP 18; TEMP 36.4; O2SAT 94
--- NOTE | 2024-01-08 07:49 | PM.DS.1 ---
History of Present Illness History of Present Illness Date Patient Seen: 01/08/24 Time Patient Seen: 07:40 Chief complaint: rt hip fracture DIRECT ADMIT Discharge Providers Provider Date of admission: 01/04/24 01:45 Primary care physician: Beatriz Osullivan MD Consults: 01/05/24 10:59 Consult to Discharge Planning Routine Comment: Consult to Physical Therapy Evaluate & Treat Comment: WBAT to RLE Physician Instructions: Evaluate and Treat 01/05/24 11:00 Consult to Occupational Therapy Evaluate & Treat Comment: Physician Instructions: Evaluate and treat Discharge provider: Zenon Zheng PA-C Exam Vital Signs (past 8 hours): - 01/08/24 07:01 Temperature 97.5 F L Pulse Rate 72 Respiratory Rate 18 Blood Pressure 142/72 H Pulse Oximetry 94 Oxygen Flow Rate 0 Fraction of Inspired Oxygen 28 SaO2/FiO2 Ratio 328 Oxygen Delivery Method Room Air Oxygen Flow Rate 0 Objective Labs 01/04/24 12:55 PFSH Social History household members: caregiver Smoking Status: Current every day smoker alcohol intake: former Discharge Assessment & Plan Assessment and Plan Assessment: Right femoral neck fracture, s/p right hip hemiarthroplasty Plan of Treatment: Discharge to SNF when accepted. Dressing change, Kat removal prior to discharge. F/u w/ ortho in 2 weeks for wound check. WBAT to RLE, walker at all times when upright/ambulatory. ASA 81 mg BID x 6 weeks for VTE prophylaxis. Discharge Plan Discharge Plan Patient Disposition: SNF Transfer to: [facility] Discharge orders & Medications Prescriptions: New acetaminophen 325 mg Tablet 650 mg PO Q6H PRN (Reason: Fever/Mild Pain (1-3)) Qty: 120 0RF aspirin 81 mg Tablet,Chewable 81 mg PO BID Qty: 90 0RF ibuprofen 600 mg Tablet 600 mg PO Q6HR PRN (Reason: Fever/Mild Pain (1-3)) Qty: 120 0RF nicotine 21 mg/24 hr Patch 24 Hour 21 mg topical DAILY Qty: 28 0RF tramadol 50 mg Tablet 100 mg PO Q4-6H PRN (Reason: Pain, Moderate (4-6)) Qty: 60 0RF ondansetron 4 mg tablet,disintegrating 4 mg PO Q8H PRN (Reason: nausea and vomiting) Qty: 30 0RF polyethylene glycol 3350 17 gram/dose powder 17 g PO DAILY PRN (Reason: constipation) Qty: 850 0RF Continued atorvastatin 40 mg tablet 40 mg PO DAILY citalopram 20 mg tablet 20 mg PO DAILY Follow up/Referrals: Jasvir Preciado MD [Physician] - 2 Weeks (Follow up w/ PA or Dr Preciado in ortho clinic in 2 weeks postop for wound check and xrays. F/u w/ Dr Preciado in 6 weeks.) Beatriz Osullivan MD [Primary Care Provider] - Diet/Activity/Treatments Diet: Diet as Tolerated Activity: Weightbearing as tolerated to right leg. Posterior hip precautions x 6 weeks. Cold/Heat Therapy: Ice to hip as needed for pain. Skin/Wound/Dressing Care Report to your healthcare provider any signs of infection, such as:: chills, fever, night sweats, unusual drainage and unusual redness Dressing: May shower. Leave dressing in place until follow up in office. If dressing becomes saturated inside, remove and replace with clean, dry gauze. No bathing or otherwise soaking incision. Do not apply any creams, lotions, or ointments to incision. Special Rehabilitation Services Reason for rehabilitation: Post-operative therapy Rehab type: Physical therapy and Occupational therapy Visit Report/Discharge Packet Instructions: DI for Hip Replacement, DI for Prescription Opioid Use Stand Alone Forms: Patient Portal/API, Surgery Discharge Discharge Data Primary Care Provider: Beatriz Osullivan
[2024-01-08] MEDS: NICOTINE 21 MG PATCH TOP (08:46)
[2024-01-08] MEDS: ASPIRIN 81 MG CHEW TAB PO ×2 (08:46→19:58)
[2024-01-08] MEDS: TRAMADOL 50 MG TABLET 100 MG PO ×2 (12:19→22:27)
--- NOTE | 2024-01-08 15:06 | CM.DPNOTE ---
DCP Cont Spoke with Alva at [facility] P [phone] who reports [facility] can accept patient back. Alva has reviewed this plan with daughter Isa who is agreeable. Alva requests patient return by BLS tomorrow 01/08 and would like patient to have a wheelchair and hospital bed available to patient. LM w/Ortho DONIS Nice this morning with update. Discussed the anticipated DCP with Ortho PA this afternoon; explained the following: -If patient is FULL CODE, he can transport via BLS without need of POLST -If patient is DNR, he will need an updated POLST reflecting this in order to transport via BLS In addition, explained to Ortho DONIS Nice that [facility] requested help securing a hospital bed and wheelchair for patient, which would require a Rx for both and contact with Marisa at [facility] P [phone] F [phone] to discuss. Patient has [facility] for DME. LM for Alva this afternoon asking if patient can return to his facility without the requested DME or if this has to be delivered before return (?) Plan: Discharge back to [facility] memory care via BLS is anticipated. Still need to: confirm plan with Alva at [facility] and daughter Isa. Obtain necessary orders/ follow up from Ortho team and schedule BLS transport. DANY
--- NOTE | 2024-01-08 15:17 | DIET.PN1 ---
Dietary Progress Note Assessment: F/u- EMR reviewed. Hx of dementia and plan is to d/c back to memory care tomorrow. Recent recorded po intakes 75%. DFM reviewed to ensure adequate meal composition. Ht: 177.8 cm Wt: 68 kg BMI: 21.4 Last BM: () MNA: 9 Juan M Score: 15 Diet: 01/05/24 Breakfast Carbohydrate Consistent Diet Diet Modifications: May Advance Diet as Tolerated: Yes Safety Tray needed?: Yes Carbohydrate level: Medium (3 CHO) Bedtime snack: Yes Reflex DM orders: No Food Texture: Level 7 - Regular Liquid Consistency: Level 0 - Thin Nutrition Percent Meal Consumed 75% 01/07/24 18:00 Percent Meal Consumed 75% 01/06/24 18:00 Labs: RBC 3.88 X10^6/uL (4.5-5.9) L 01/04/24 12:55 Hgb 12.0 g/dL (13.5-17.5) L 01/04/24 12:55 Hct 34.7 % (41-53) L 01/04/24 12:55 Electronically Signed by: Sydnie Quintana 01/08/24 15:17 Clinical Dietitian [address] [address]
--- NOTE | 2024-01-08 17:07 | PT-IP ANOTE ---
Pt refused to work with PT, pt would like to stay in bed.
--- NOTE | 2024-01-08 17:13 | PM.PNPO.1 ---
Subjective Subjective Interval history: patient is non-verbal this morning. He does not appear to be in any pain. He is able to follow simple directions Exam Vital Signs (past 8 hours): Fraction of Inspired Oxygen 28 SaO2/FiO2 Ratio 328 Oxygen Delivery Method Room Air Oxygen Flow Rate 0 Narrative Exam Narrative: 3/5 hip flexors, quadriceps, hamstrings; 5/5 PF, DF, EHL on right. Minor amount of blood drainage from the Aquacel. Objective Labs 01/04/24 12:55 PFSH Social History household members: caregiver Smoking Status: Current every day smoker alcohol intake: former Assessment & Plan Post-op Postoperative Procedures: Procedures Operation Date: 01/04/24 14:45 Actual Procedure Side Surgeon p Hip Hemiarthroplasty Right Jasvir Preciado MD Postoperative day: 4 Postoperative status: doing well Postoperative plan narrative: Plan is to discharge patient to Home Memory Care tomorrow. Tried to called daughter to clarify resuscitation status, but phone number provided would not go through. Will provide an Rx for a wheelchair and hospital bed upon DC. Continue to work with PT. Multi-modal pain control. Time Spent With Patient Time with patient: less than 15 minutes Quality VTE Deep Vein Thrombosis/Pulmonary Embolism Present on Admission: No
[2024-01-08 20:46] VITALS: BP 136/84; PULSE 74; RESP 18; TEMP 37.2; O2SAT 93
[2024-01-08] MEDS: ACETAMINOPHEN 325 MG TABLET 650 MG PO (22:28)
[2024-01-09 05:46] VITALS: BP 124/72; PULSE 86; RESP 18; TEMP 36.6; O2SAT 94
[2024-01-09 08:00] VITALS: BP 128/78; PULSE 86; RESP 18; TEMP 36.5; O2SAT 91
[2024-01-09] MEDS: NICOTINE 21 MG PATCH TOP (09:26)
[2024-01-09] MEDS: ASPIRIN 81 MG CHEW TAB PO (09:26)
--- NOTE | 2024-01-09 10:37 | PM.DS.1 ---
History of Present Illness History of Present Illness Date Patient Seen: 01/09/24 Time Patient Seen: 10:37 Chief complaint: rt hip fracture DIRECT ADMIT Narrative: This is a 78 old male with a left femoral neck fracture. We discussed that in order to decrease the risk of avascular necrosis, fracture nonunion fracture malunion and to increase the ability to weightbear early, and increase overall health outcomes, we recommend hip hemiarthroplasty. The risks and benefits of surgery were discussed in detail including the risk for infection, damage to internal structures, bleeding, hardware failure, femur fracture, need for future surgery, dislocation, and risks of anesthesia. They accepted all the risks and expressed understanding and wished to go forward with surgery. Discharge Providers Provider Date of admission: 01/04/24 01:45 Discharge Date: 01/09/24 Primary care physician: Beatriz Osullivan MD Consults: 01/05/24 10:59 Consult to Discharge Planning Routine Comment: Consult to Physical Therapy Evaluate & Treat Comment: WBAT to RLE Physician Instructions: Evaluate and Treat 01/05/24 11:00 Consult to Occupational Therapy Evaluate & Treat Comment: Physician Instructions: Evaluate and treat Discharge provider: Zenon Zheng PA-C Summary Hospital Course Discharge Diagnosis: Right hip femoral neck fracture Hospital Course: Procedure: Right hip hemiarthroplasty Same procedure as scheduled: Yes Surgeon: Jasvir Preciado Chinese Language Professor: Yecenia Rivera Operative Notes Findings: Right basicervical femoral neck fracture as seen on imaging and under direct visualization. Closure Type: primary Specimen(s): none sent Prosthetic devices, grafts, tissues, transplants, or devices: Implants [employer] Synergy cemented stem size 11 Distal post centralizer Cement restrictor High offset taper sleeve Unipolar head size 54 Estimated Blood Loss (mL): 100 Blood products transfused: none Status at Discharge Functional status at discharge: bed bound Time Spent with Patient Time spent: Less than 30 minutes Exam Vital Signs (past 8 hours): - 01/09/24 05:46 01/09/24 08:00 Temperature 97.8 F 97.7 F Pulse Rate 86 86 Respiratory Rate 18 18 Blood Pressure 124/72 128/78 Pulse Oximetry 94 91 Oxygen Flow Rate 0 0 Fraction of Inspired Oxygen 28 SaO2/FiO2 Ratio 328 Oxygen Delivery Method Room Air Oxygen Flow Rate 0 Narrative Exam Narrative: It is difficult to arouse this morning. He is nonverbal communication. Able to see him flex and extend of the right ankle against resistance. Pedal pulses intact. Objective Labs 01/04/24 12:55 PFSH Social History household members: caregiver Smoking Status: Current every day smoker alcohol intake: former Discharge Assessment & Plan Assessment and Plan Assessment: Right femoral neck fracture, s/p right hip hemiarthroplasty Plan of Treatment: Discharge back to [facility]. Kat removal prior to discharge. F/u w/ ortho in 2 weeks for wound check. WBAT to RLE, walker at all times when upright/ambulatory. ASA 81 mg BID x 6 weeks for VTE prophylaxis. Discharge Plan Discharge Plan Patient Disposition: Home Discharge orders & Medications Prescriptions: New acetaminophen 325 mg Tablet 650 mg PO Q6H PRN (Reason: Fever/Mild Pain (1-3)) Qty: 120 0RF aspirin 81 mg Tablet,Chewable 81 mg PO BID Qty: 90 0RF ibuprofen 600 mg Tablet 600 mg PO Q6HR PRN (Reason: Fever/Mild Pain (1-3)) Qty: 120 0RF nicotine 21 mg/24 hr Patch 24 Hour 21 mg topical DAILY Qty: 28 0RF tramadol 50 mg Tablet 100 mg PO Q4-6H PRN (Reason: Pain, Moderate (4-6)) Qty: 60 0RF ondansetron 4 mg tablet,disintegrating 4 mg PO Q8H PRN (Reason: nausea and vomiting) Qty: 30 0RF polyethylene glycol 3350 17 gram/dose powder 17 g PO DAILY PRN (Reason: constipation) Qty: 850 0RF Continued atorvastatin 40 mg tablet 40 mg PO DAILY citalopram 20 mg tablet 20 mg PO DAILY Follow up/Referrals: Jasvir Preciado MD [Physician] - 2 Weeks (Follow up w/ PA or Dr Preciado in ortho clinic in 2 weeks postop for wound check and xrays. F/u w/ Dr Preciado in 6 weeks.) Beatriz Osullivan MD [Primary Care Provider] - Visit Report/Discharge Packet Instructions: DI for Hip Replacement, DI for Prescription Opioid Use Stand Alone Forms: Patient Portal/API, Stroke Signs & Symptoms, Surgery Discharge Discharge Data Primary Care Provider: Beatriz Osullivan Quality VTE Deep Vein Thrombosis/Pulmonary Embolism Present on Admission: No
--- NOTE | 2024-01-09 11:03 | CM.DPNOTE ---
DCP Note MD PSYCHIATRY reviewed EMR. Per juan DYKES, cleared to dc today Per Alva nurse at [facility] ([phone] or [email or web address]) pt now has hospital bed in room. Can accept him back today. They have a few cases of COVID, asked I pass this along to dtr. MD PSYCHIATRY spoke with dtr Isa ([phone]). Reviewed DCP. Report understanding of new COVID at [facility], confirm preference is for pt to dc there. Report understanding he may have a bill associated with BLS transport home, report that as preference for transport. Isa was a EMS in the past. Isa reports pt is full code at this time (no POLST needed for transport) but she plans to discuss this with her siblings on his status moving forward. MD PSYCHIATRY called [facility] spoke with Radha. transport set up for 1400. MD PSYCHIATRY completed transport form with juan DYKES signature. MD PSYCHIATRY emailed Alva tn summary information. MD PSYCHIATRY gave RN report number. RN has packet with med list and scripts to send with pt. Transport form in red chart. P: pt to dc today via [facility] at [address] [facility]. CM team will continue to follow as needed RAHUL Gupta
--- NOTE | 2024-01-09 11:42 | PC.NURSE ---
Report called to Alva-no further questions. Pt is ready for discharge when transport arrives.
--- NOTE | 2024-01-09 12:55 | PC.NURSE ---
Patient not given insulin for lunch cbg of 137,sleeping somnolent,refused lunch when wide area network systems administrator woke and asked. on track to d\c at 1400 to memory care.
== END 2024-01-09 14:14 | DRG 522 ==
PROVIDERS: Nurse Anesthetist, Certified Registered; Admitting Provider Orthopaedic Surgery; PCP Family Medicine; Referring Provider Orthopaedic Surgery; Visit Provider Orthopaedic Surgery
PROC: 0SRR0JZ Replacement of Right Hip Joint, Femoral Surface with Synthetic Substitute, Open Approach (ICD-10-PCS; CPT 27125; principal; 2024-01-04 14:45)
DX: S72.001A Fracture of unspecified part of neck of right femur, initial encounter for closed fracture (principal); F03.90 Unspecified dementia, unspecified severity, without behavioral disturbance, psychotic disturbance, mood disturbance, and anxiety; R41.82 Altered mental status, unspecified; W18.30XA Fall on same level, unspecified, initial encounter; Z86.73 Personal history of transient ischemic attack (TIA), and cerebral infarction without residual deficits
CPT/HCPCS: 36415; 70450; 71045; 73521; 82962; 85027; 87635; 94762; 97161; 97167; 97530; 97535; C1776; C9290; J0171; J0690; J1815; J3010